=== PATIENT | male | born 1955 | race Caucasian/White ===

== ENCOUNTER 2017-02-12 13:58 | Inpatient (IN) ==
[2017-02-12] MEDS ORDERED: DIPH/TET/ACEL PERT BOOSTER VACCINE 0.5 ML VIAL IM ONE ×2 (14:01→14:09)
[2017-02-12] MEDS ORDERED: ONDANSETRON 4 MG/2 ML VIAL IV STA (14:01)
[2017-02-12] MEDS ORDERED: HYDROmorphone 2 MG/1 ML VIAL IV STA (14:01)
[2017-02-12] MEDS ORDERED: LACTATED RINGERS 1,000 ML IV STA (14:01)
[2017-02-12] MEDS ORDERED: ceFAZolin 1,000 MG VIAL ONE (14:09)
[2017-02-12] MEDS ORDERED: HYDROmorphone 2 MG/1 ML VIAL ONE (14:09)
[2017-02-12 14:10] LABS: Basophils # 0.1 10*3/uL (0.0-0.2); Basophils % 0.4 % (0.0-0.8); Eosinophils # 0.1 10*3/uL (0.0-0.87); Eosinophils % 0.7 % (0.00-10.9); Hematocrit 45.3 VOL% (42.0-52.0); Hemoglobin 16.3 GM/DL (14.0-18.0); Immature Granulocytes % 0.5 %; Immature Granulocytes Absolute 0.06 #; Lymphocytes # 2.1 10*3/uL (1.4-4.0); Lymphocytes % 16.9 % (21.2-54.2); Mean Corpuscular Hemoglobin 34 PG (27-34); Mean Corpuscular Volume 93.4 FL (87-102); Mean Platelet Volume 9.8 FL (9.6-12.0); Monocytes # 0.9 10*3/uL (0.11-0.8); Neutrophils # 9.2 10*3/uL (1.4-7.4); Neutrophils % 74.5 % (38.7-73.9); Platelet Count 169 T/CUMM (130-400); Red Blood Count 4.85 MC/CUMM (3.8-5.5); Red Cell Distribution Width 12.3 % (9.3-17.3); White Blood Count 12.4 T/CUMM (4-12)
[2017-02-12] MEDS ORDERED: ONDANSETRON 4 MG/2 ML VIAL ONE (14:12)
[2017-02-12 14:21] LABS: INR 0.9; PT Patient Result 9.9 SECS; Partial Thromboplastin Time 25.6 SECS (0-40)
[2017-02-12 14:31] LABS: Alanine Aminotransferase 65 U/L (16-61); Alkaline Phosphatase 56 U/L (45-117); Amylase 54 U/L (25-115); Aspartate Amino Transferase 64 U/L (0-37); Blood Urea Nitrogen 21 MG/DL (7-18); Calcium 9.2 MG/DL (8.5-10.1); Glucose 105 MG/DL (74-106); Osmolality,Calculated 279.5 MOS/KG (273-304); Sodium 139 MMOL/L (136-145); Total Protein 7.3 G/DL (6.4-8.3)
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
[2017-02-12] MEDS ORDERED: ONDANSETRON 4 MG/2 ML VIAL IV PRN (15:44)
[2017-02-12] MEDS ORDERED: BISACODYL 5 MG TABLET PO PRN (15:44)
[2017-02-12] MEDS ORDERED: HYDROmorphone 2 MG/1 ML VIAL IV PRN (15:44)
[2017-02-12] MEDS ORDERED: ALUMINUM/MAGNES/SIMETH MAX STR 30 ML UDCUP PO PRN (15:44)
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
[2017-02-12] MEDS ORDERED: LIDOCAINE 2%/EPI 1:100,000 DENTAL 1.7 ML CARTRIDGE DENTAL ONE (16:28)
[2017-02-12] MEDS ORDERED: LIDOCAINE 2%/EPI 20 ML VIAL MISC INJ ONE (17:00)
[2017-02-12] MEDS: ACETAMINOPHEN 325 MG TABLET PO PRN (18:08)
[2017-02-12] MEDS: KETOROLAC 15 MG/1 ML VIAL IV SCH ×2 (18:11→22:07)
[2017-02-12] MEDS: GENTAMICIN 0.1% CREAM 15 GM TUBE TOP SCH ×2 (18:13→22:08)
[2017-02-12] MEDS: DEXTROSE 5% NACL 0.45% 1,000 ML IV SCH (18:50)
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
[2017-02-12] MEDS: traZODone 50 MG TABLET PO SCH (22:06)
[2017-02-12] MEDS: MUPIROCIN 2% OINT 22 GM TUBE TOP SCH (22:07)
[2017-02-12] MEDS: DOCUSATE SODIUM 100 MG CAPSULE PO SCH (22:08)
[2017-02-13] MEDS: DEXTROSE 5% NACL 0.45% 1,000 ML IV SCH ×4 (02:45→17:04)
[2017-02-13] MEDS: KETOROLAC 15 MG/1 ML VIAL IV SCH ×4 (04:40→21:23)
[2017-02-13 06:19] LABS: Basophils % 0.2 % (0.0-0.8); Eosinophils # 0.1 10*3/uL (0.0-0.87); Eosinophils % 0.3 % (0.00-10.9); Hematocrit 40.5 VOL% (42.0-52.0); Hemoglobin 14.5 GM/DL (14.0-18.0); Immature Granulocytes % 0.4 %; Immature Granulocytes Absolute 0.06 #; Lymphocytes # 1.4 10*3/uL (1.4-4.0); Mean Corpuscular HGB Conc 35.8 GM/DL (32-36); Mean Corpuscular Hemoglobin 34 PG (27-34); Mean Corpuscular Volume 93.5 FL (87-102); Mean Platelet Volume 9.9 FL (9.6-12.0); Monocytes # 1.3 10*3/uL (0.11-0.8); Monocytes % 8.8 % (1.7-12.7); Neutrophils # 11.5 10*3/uL (1.4-7.4); Neutrophils % 80.3 % (38.7-73.9); Platelet Count 153 T/CUMM (130-400); Red Blood Count 4.33 MC/CUMM (3.8-5.5); Red Cell Distribution Width 12.2 % (9.3-17.3); White Blood Count 14.4 T/CUMM (4-12)
[2017-02-13 06:51] LABS: Albumin 3.2 G/DL (3.4-5.0); Bilirubin,Total 1.6 MG/DL (0.2-1.0); Calcium 8.4 MG/DL (8.5-10.1); Osmolality,Calculated 279.5 MOS/KG (273-304); Total Protein 6.2 G/DL (6.4-8.3)
[2017-02-13 07:19] LABS: Apearance,Urine CLEAR (Clear); Bilirubin,Urine Negative (Negative); Blood, Urine Negative (Negative); Glucose,Urine (UA) Negative (Negative); Ketones,Urine Negative (Negative); Mucus,Urine Occasional /LPF (Occasional); Nitrite,Urine Negative (Negative); Protein,Urine Negative; RBC,Urine <1 /HPF (0-4); Urine Color Yellow (Yellow); Urine Specific Gravity 1.016 (1.001-1.035); Urine Urobilinogen < 2.0 EU/DL (0.2-1.0); WBC,Urine 1 /HPF (0-6)
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
[2017-02-13] MEDS: PANTOPRAZOLE 40 MG TABLET PO SCH (08:48)
[2017-02-13] MEDS: DOCUSATE SODIUM 100 MG CAPSULE PO SCH ×2 (08:48→21:12)
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
[2017-02-13] MEDS: GENTAMICIN 0.1% CREAM 15 GM TUBE TOP SCH ×4 (09:49→21:14)
[2017-02-13] MEDS: MUPIROCIN 2% OINT 22 GM TUBE TOP SCH ×3 (09:50→21:14)
[2017-02-13] MEDS: ACETAMINOPHEN 325 MG TABLET PO PRN (16:50)
[2017-02-13] MEDS: traZODone 50 MG TABLET PO SCH (21:12)
[2017-02-14] MEDS: DEXTROSE 5% NACL 0.45% 1,000 ML IV SCH (01:32)
[2017-02-14] MEDS: KETOROLAC 15 MG/1 ML VIAL IV SCH ×2 (03:00→09:36)
[2017-02-14 07:45] VITALS: BP 156/85
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
[2017-02-14] MEDS: PANTOPRAZOLE 40 MG TABLET PO SCH (09:26)
[2017-02-14] MEDS: DOCUSATE SODIUM 100 MG CAPSULE PO SCH (09:26)
[2017-02-14] MEDS: MUPIROCIN 2% OINT 22 GM TUBE TOP SCH (09:29)
[2017-02-14] MEDS: GENTAMICIN 0.1% CREAM 15 GM TUBE TOP SCH (09:29)
== END 2017-02-14 11:00 | disposition home or self-care (01) | DRG 138 ==
LOC: EDUNIT# → EDBD → N.ED 13:58 → N.EDINP 16:05 → N.3E 16:08
PROVIDERS: ADMIT Specialist; ATTEND Specialist